=== PATIENT | female | born 1945 | race Caucasian/White ===

== ENCOUNTER 2023-02-10 15:35 | Emergency (ER) | payer MEDICARE ==
[~2023-02-10] VITALS: Ht 160 cm; Wt 79.4 kg
[~2023-02-10 15:35] MED LIST: ASPIRIN81 MG PO; ATORVASTATIN CA20 MG PO; CARVEDILOL12.5 MG PO; FENOFIBRATE145 MG PO; FISH OIL500 M1 PO; GLIMEPIRIDE2 MG PO; HYDROCHLOROTHIA25 MG PO; LISINOPRIL10 MG PO; METFORMIN HCL500 MG PO; MULTI-VITAMIN1 EACH PO; SPIRONOLACTONE25 MG PO
[2023-02-10] MEDS ORDERED: CEFTRIAXONE 1 GM VIAL ONE (16:38)
[2023-02-10] MEDS ORDERED: CEFDINIR300 MG PO (16:43)
[2023-02-10 16:51] VITALS: BP 148/65; PULSE 68; RESP 17; O2SAT 99
== END 2023-02-10 16:53 | disposition home or self-care (01) ==
LOC: FSED 15:44
DX: R42 Dizziness and giddiness (principal); N39.0 Urinary tract infection, site not specified; I10 Essential (primary) hypertension; I25.10 Atherosclerotic heart disease of native coronary artery without angina pectoris; Z95.5 Presence of coronary angioplasty implant and graft
CPT/HCPCS: 70450; 80053; 81003; 82553; 84484; 85025; 93005; 99284; J0696